=== PATIENT | female | born 1970 | race Caucasian/White ===

== ENCOUNTER 2022-10-01 11:31 | Emergency (ER) | payer OTHER ==
[~2022-10-01] VITALS: Ht 157.5 cm; Wt 67.1 kg
--- NOTE | 2022-10-01 11:35 | NUR ---
SIMON [id number] from work with c/o back pain, pt to room 1B via EMS [email or web address]. Pt states she has a history of back pain, she started having pain about two days ago and it got worse while she was at work today. No reported injury, fall or trauma. Pt was registered in error under a different account by ER admitting upon arrival (see [id number]).
--- NOTE | 2022-10-01 11:50 | NUR ---
Dr Silva seen and examined the PT.
[2022-10-01] MEDS ORDERED: MORPHINE SULFATE 4 MG/1 ML DISP.SYRIN IV ONE (12:00)
[2022-10-01] MEDS ORDERED: ACETAMINOPHEN 325 MG TABLET PO ONE (12:00)
[2022-10-01] MEDS ORDERED: KETOROLAC TROMETHAMINE 30 MG INJ IVP ONE (12:00)
[2022-10-01] MEDS ORDERED: ACETAMINOPHEN ES 500 MG TABLET ONE (12:12)
[2022-10-01] MEDS ORDERED: KETOROLAC TROMETHAMINE 30 MG INJ ONE (12:12)
[2022-10-01] MEDS ORDERED: MORPHINE SULFATE 4 MG/1 ML DISP.SYRIN ONE (12:13)
[2022-10-01 12:19] LABS: CREATININE 0.7 mg/dL (0.6-1.3); POTASSIUM 3.8 mmol/L (3.5-5.1)
[2022-10-01 12:21] LABS: HEMATOCRIT 40.4 % (31.2-41.9); MEAN CORPUSCULAR HEMOGLOBIN 28.5 uug (24.7-32.8); MEAN CORPUSCULAR VOLUME 85.2 fL (75.5-95.3); PLATELET COUNT (AUTO) 295 K/uL (179-408)
[2022-10-01 12:25] LABS: BILIRUBIN,TOTAL 0.5 mg/dL (0.2-1.0); TOTAL PROTEIN, SERUM 8.4 g/dL (6.4-8.2)
--- NOTE | 2022-10-01 12:45 | NUR ---
PT back from CT, walked to bathroom w/ steady gait. Pt states feeling decreased pain.
[2022-10-01 13:52] VITALS: BP 130/87
--- NOTE | 2022-10-01 13:52 | NUR ---
IV removed. Catheter intact and site benign. Pressure and 4x4 gauze applied to site. No bleeding noted.
--- NOTE | 2022-10-01 13:54 | NUR ---
Patient discharged to home in stable condition. Written and verbal after care instructions given. Patient verbalizes understanding of instructions. Stressed follow up or return to ER for worsening s/s.
== END 2022-10-01 13:54 | disposition home or self-care (01) ==
LOC: ER 11:31
DX: M54.50 Low back pain, unspecified (principal); M48.07 Spinal stenosis, lumbosacral region
CPT/HCPCS: 99285; 72128; 96374; 96375; 80053; 85025; 85651; 84484; 36415; 93005; 72131; J1885; J2270; A4663; A9150